=== PATIENT | female | born 1975 | race African-American/Black ===

== ENCOUNTER 2016-10-07 13:23 | Emergency (ER) | payer OTHER ==
[~2016-10-07] VITALS: Ht 157.5 cm; Wt 66.0 kg
[~2016-10-07 13:23] MED LIST: ALBU25IPRN NEB; ELVITAB; LEVO750T33 PO; LORTA5 PO; MEGE20TA PO; NEBUMIS6 INH
[2016-10-07 13:25] VITALS: BP 131/87; PULSE 81; RESP 17; TEMP 97.8; O2SAT 98
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
[2016-10-07] MEDS ORDERED: KETOROLAC TROMETHAMINE 60 MG/2 ML (IM) VIAL IM ONE (14:45)
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
[2016-10-07] MEDS ORDERED: IBUP-232 PO (15:45)
[2016-10-07] MEDS ORDERED: ACET325T PO (15:45)
[2016-10-07] MEDS ORDERED: TRAM50TA PO (15:45)
== END 2016-10-07 16:05 | disposition home or self-care (01) ==
LOC: NEPB 13:23
DX: S20.219A Contusion of unspecified front wall of thorax, initial encounter (principal); R10.13 Epigastric pain; Z21 Asymptomatic human immunodeficiency virus [HIV] infection status; Z86.2 Personal history of diseases of the blood and blood-forming organs and certain disorders involving the immune mechanism; Z86.59 Personal history of other mental and behavioral disorders; Z87.09 Personal history of other diseases of the respiratory system; Z87.19 Personal history of other diseases of the digestive system; Z87.891 Personal history of nicotine dependence; V89.2XXA Person injured in unspecified motor-vehicle accident, traffic, initial encounter; Y92.410 Unspecified street and highway as the place of occurrence of the external cause
CPT/HCPCS: 71111; 96372; 99284; J1885